=== PATIENT | male | born 1985 ===

== ENCOUNTER 2025-04-18 22:40 | Emergency (ER) | payer OTHER, SELFPAY ==
--- OUTSIDE RECORDS SUMMARY | 2016-10-28 19:00 | XMS_ITS | Continuity of Care Document ---
Author Organization [facility] Address [address] [address] [place] [address] Phone Care Team Providers Care Plumbing And Heating Contractor Name Role Phone Link Rell RALPH Unavailable Unavailable Procedures Procedure Date Colonoscopy Flex; Dx (jun Pro) 17 Moderate Sedation, Initial 15 minutes Ja Advance Directives Directive Yes / No Effective Date File Name No Information Encounters Encounter Description Practice Location Reason(s) For Visit Diagnoses Date Provider Providers Copied on Encounter [facility] [place], [address] [address], [place], [place], [id number], [place] tel:[phone] [facility] No Information Link MD Zacarias. [address] [place] [address], [address], [id number], [place]. tel:[phone] Referring Provider: Rell Ramachandran MD, [address] [place] [address], [id number]. tel:[phone] Family History Family Member Type Diagnosis Age At Onset No Information Payers Payer name Insurance type Covered democrat ID Domenic mejia(s) Blue Cross [facility] [id number] Social History Type Description Quantity Date Captured Comments Sex Male Smoking Status No Information Chief Complaint And Reason For Visit No Information Reason For Referral Reason For Referral No Information History Of Present Illness Encounter Date Complaint History Of Prese nt Illness No Information Functional Status Date Functional Assessmen t No Information Instructions Date Instruction Additional Infor mation No Information Assessments Type Assessment Date No Information Patient Care Teams Name Effective Dates (start - stop) Status Members No Information
--- OUTSIDE RECORDS SUMMARY | 2016-10-28 19:00 | XMS_ITS | Continuity of Care Document ---
Author Organization [facility] Address [address] [address] [place] [address] Phone Care Team Providers Care Alpine Patroller Name Role Phone Link Rell RALPH Unavailable Unavailable Procedures Procedure Date Colonoscopy Flex; Dx (jun Pro) 17 Moderate Sedation, Initial 15 minutes Ja Advance Directives Directive Yes / No Effective Date File Name No Information Encounters Encounter Description Practice Location Reason(s) For Visit Diagnoses Date Provider Providers Copied on Encounter [facility] [place], [address] [address], [place], [place], [id number], [place] tel:[phone] [facility] No Information Link MD Zacarias. [address] [place] [address], [address], [id number], [place]. tel:[phone] Referring Provider: Rell Ramachandran MD, [address] [place] [address], [id number]. tel:[phone] Family History Family Member Type Diagnosis Age At Onset No Information Payers Payer name Insurance type Covered constitution party ID Domenic mejia(s) Blue Cross [facility] [id number] Social History Type Description Quantity Date Captured [...]
--- OUTSIDE RECORDS SUMMARY | 2025-04-18 22:42 | XMS_ITS | Clinical Summary ---
Author Organization [facility] Address [address] [place] [address]. [place] [address] Care Team Providers Care Lathe Turner Name Role Phone No Ref-Primary, Physician Primary Care Provider Loyda Blevins MD Unavailable [phone] Allergies No known active allergies Medications propranolol (INDERAL LA) 60 MG 24 hr capsuleIndicatio ns:Episodic tension-type headache, not intractable,Anxi ety Take 1 capsule (60 mg) by mouth daily 30 capsule 1 7 Active cyclobenzaprine (FLEXERIL) 10 MG tabletIndication s:Episodic tension-type headache, not intractable Take 1 tablet (10 mg) by mouth 3 times daily as needed for muscle spasms 90 tablet 7 Active albuterol (PROAIR HFA/PROVENTIL HFA/VENTOLIN HFA) 108 (90 Base) MCG/ACT inhaler Inhale 1-2 puffs into the lungs. 4 Active predniSONE (DELTASONE) 20 MG tabletIndication s:Chronic cough,SOB (shortness of breath),Wheeze Take 3 tabs by mouth daily x 3 days, then 2 tabs daily x 3 days, then 1 tab daily x 3 days, then 1/2 tab daily x 3 days. 20 tablet 4 Active albuterol (PROAIR HFA) 108 (90 Base) MCG/ACT inhalerIndicatio ns:SOB (shortness of breath),Wheeze Inhale 2 puffs into the lungs every 6 hours. 18 g 4 Active amoxicillin-clav ulanate (AUGMENTIN) 875-125 MG tabletIndication s:Pneumonia due to infectious organism, unspecified laterality, unspecified part of lung Take 1 tablet by mouth 2 times daily. 20 tablet Active Additional Information Patient not taking.Reported on 09/06/2024 Active Problems Problem Noted Date Diagnosed Date Anxiety 12/23/2016 Esophageal reflux (GERD) 03/18/2014 Hyperlipidemia LDL goal <130 08/20/2010 Genital warts 07/08/2010 Immunizations Immunization Administration Dates Next Due TDAP Vaccine (Adacel) 07/08/2010 Family History Medical History Relation Comments Hypertension Father Cerebrovascular Disease Maternal Grandfather Diabetes Paternal Grandfather Diabetes Paternal Grandmother Colon Cancer No family hx of Relation Status Comments Father Alive Maternal Grandfather Maternal Grandmother Mother Alive Paternal Grandfather Alive Paternal Grandmother Social History Tobacco Use Types Packs/Day Years Used Date Smoking Tobacco: Never Cigars Smokeless Tobacco: Never Tobacco Cessation:Ready to Q uit: Yes Comments:occasionally Alcohol Use Standard Drinks/Week Comments Yes 0 (1 standard drink = 0.6 oz pur e alcohol) socailly PHQ-2 Answer Date Recorded PHQ-2 Score 0 09/06/2024 Interpersonal Safety Answer Date Record ed Do you feel physically and e motionally safe where you currently live? Yes 09/06/2024 Within the past 12 months, h ave you been hit, slapped, kicked or otherwise physically hurt by someone? No 09/06/2024 Within the past 12 months, h ave you been humiliated or emotionally abused in other ways by your partner or ex-partner? 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 Gender Identity Not on file Sexual Orientation Not on file Last Filed Vital Signs Vital Sign Reading Time Taken Comments Blood Pressure 143/88 09/06/2024 1:27 PM STATION MANAGER Pulse 92 09/06/2024 1:26 PM STATION MANAGER Temperature 37.4 C (99.3 F) 09/06/2024 1:26 PM STATION MANAGER Respiratory Rate 14 09/06/2024 1:26 PM STATION MANAGER Oxygen Saturation 98% 09/06/2024 1:26 PM STATION MANAGER Inhaled Oxygen Concentration - - Weight 77.9 kg (171 lb 12.8 oz) 09/06/2024 1:26 PM STATION MANAGER Height 170.2 cm (5' 7) 09/06/2024 1:26 PM STATION MANAGER Body Mass Index 26.91 09/06/2024 1:26 PM STATION MANAGER Plan of Treatment Health Maintenance Due Date Last Done Comments ADVANCE CARE PLANNING 1984 ANNUAL REVIEW OF HM ORDERS 1984 HEPATITIS C SCREENING 2002 HEPATITIS B VACCINE (1 of 3 - 19+ 3-dose series) 2003 YEARLY PREVENTIVE VISIT 01/28/2015 01/29/20 14, 07/10/2012, 09/16/2011, Additional history exists DTAP/TDAP/TD VACCINE (2 - Td or Tdap) 07/08/2020 07/08/2010 COVID-19 VACCINE ( - season) 2024 PHQ-2 (once per calendar year) 2024 09/06/2024, 12/23/2016, 10/21/2016 INFLUENZA VACCINE (#1) 2025 LIPID 09/06/2025 09/06/2024, 08/04, 01/28/2014, Additional history exists DIABETES SCREENING 09/06/2027 09/06/2024, 0 12/16/2016, 10/21/2016, Additional history exists ZOSTER VACCINE (1 of 2) 2034 HIV SCREENING Completed 08/26/2014 HPV VACCINE Aged Out No longer eligi ble based on patient's age to complete this topic MENINGITIS VACCINE Aged Out No longer eligible based on patient's age to complete this topic PNEUMOCOCCAL VACCINE: PEDIATRICS (0 to 5 YEARS) AND AT-RISK PATIENTS (6 to 49 YEARS) Aged Out No longer eligible based on patient's age to complete this topic Procedures Procedure Name Priority Date/Time Associated Diagnosis Comments COMPREHENSIVE METABOLIC PANEL Routine 09/06/2024 1:54 PM STATION MANAGER Pneumonia of right lung due to infectious organism, unspecified part of lung LIPID REFLEX TO DIRECT LDL PANEL Routine 09/06/2024 1:54 PM STATION MANAGER Lipid screening HIV ANTIGEN ANTIBODY COMBO Routine 08/26/2014 7:08 AM STATION MANAGER Screen for STD (sexually transmitted disease) from Last 3 Months or Most Recently Relevant to Health Maintenance Results * (ABNORMAL) Lipid panel reflex to direct LDL Non-fasting (09/06/2024 1:54 PM STATION MANAGER) Cholesterol 289(H) <200 mg/dL 09/07/2024 10:30 AM STATION MANAGER [facility] Triglycerides 315(H) <150 mg/dL 09/07/2024 10:30 AM STATION MANAGER [facility] Direct Measure HDL 46 >=40 mg/dL 09/07/2024 10:30 AM STATION MANAGER [facility] LDL Cholesterol Calculated 180(H) <100 mg/dL 09/07/2024 10:30 AM STATION MANAGER [facility] Non HDL Cholesterol 243(H) <130 mg/dL 09/07/2024 10:30 AM STATION MANAGER [facility] Patient Fasting > 8hrs? No 09/07/2024 10:30 AM STATION MANAGER [facility] Blood BLOOD SPECIMEN / Unknown Venipuncture / Unknown 09/06/2024 1:54 PM STATION MANAGER 09/06/2024 1:54 PM STATION MANAGER Narrative [facility] - 09/07/2024 10:30 AM STATION MANAGER Cholesterol Desirable: < 200 mg/dL Borderline High: 200 - 239 mg/dL High: >= 240 mg/dL Triglycerides Normal: < 150 mg/dL Borderline High: 150 - 199 mg/dL High: 200-499 mg/dL Very High: >= 500 mg/dL Direct Measure HDL Female: >= 50 mg/dL Male: >= 40 mg/dL LDL Cholesterol Desirable: < 100 mg/dL Above Desirable: 100 - 129 mg/dL Borderline High: 130 - 159 mg/dL High: 160 - 189 mg/dL Very High: >= 190 mg/dL Non HDL Cholesterol Desirable: < 130 mg/dL Above Desirable: 130 - 159 mg/dL Borderline High: 160 - 189 mg/dL High: 190 - 219 mg/dL Very High: >= 220 mg/dL us Loyda Blevins MD LAB - BLOOD ORDERABLES Final Re sult [facility] [address] [facility], [address] [place] [address], [facility] * Comprehensive metabolic panel (09/06/2024 1:54 PM STATION MANAGER) Sodium 136 135 - 145 mmol/L 09/07/2024 10:30 AM STATION MANAGER [facility] Potassium 4.0 3.4 - 5.3 mmol/L 09/07/2024 10:30 AM STATION MANAGER [facility] Carbon Dioxide (CO2) 28 22 - 29 mmol/L 09/07/2024 10:30 AM STATION MANAGER [facility] Anion Gap 9 7 - 15 mmol/L 09/07/2024 10:30 AM STATION MANAGER [facility] Urea Nitrogen 18.5 6.0 - 20.0 mg/dL 09/07/2024 10:30 AM STATION MANAGER [facility] Creatinine 1.03 0.67 - 1.17 mg/dL 09/07/2024 10:30 AM STATION MANAGER [facility] GFR Estimate >90 >60 mL/min/1.7 3m2 09/07/2024 10:30 AM STATION MANAGER [facility] Comment:eGFR calculated us2020 CKD-EPI equation. Calcium 9.0 8.8 - 10.4 mg/dL 09/07/2024 10:30 AM STATION MANAGER [facility] Comment:Reference intervals for this test were updated on 04/17/2024 to reflect our healthy population more accurately. There may be differences in the flagging of prior results with similar values performed with this method. Those prior results can be interpreted in the context of the updated reference intervals. Chloride 99 98 - 107 mmol/L 09/07/2024 10:30 AM STATION MANAGER [facility] Glucose 85 70 - 99 mg/dL 09/07/2024 10:30 AM STATION MANAGER [facility] Alkaline Phosphatase 75 40 - 150 U/L 09/07/2024 10:30 AM STATION MANAGER [facility] AST 25 0 - 45 U/L 09/07/2024 10:30 AM STATION MANAGER [facility] ALT 33 0 - 70 U/L 09/07/2024 10:30 AM STATION MANAGER [facility] Protein Total 7.7 6.4 - 8.3 g/dL 09/07/2024 10:30 AM STATION MANAGER [facility] Albumin 4.6 3.5 - 5.2 g/dL 09/07/2024 10:30 AM STATION MANAGER [facility] Bilirubin Total 0.2 <=1.2 mg/dL 09/07/2024 10:30 AM STATION MANAGER [facility] Patient Fasting > 8hrs? No 09/07/2024 10:30 AM STATION MANAGER [facility] Blood BLOOD SPECIMEN / Unknown Venipuncture / Unknown 09/06/2024 1:54 PM STATION MANAGER 09/06/2024 1:54 PM STATION MANAGER us Loyda Blevins MD LAB - BLOOD ORDERABLES Final Re sult [facility] [address] [facility] [address], [address] [place] [address], [place] * HIV Antigen Antibody Combo (08/26/2014 7:08 AM STATION MANAGER) Pathologist [facility] HIV Antigen Antibody Combo Nonreactive HIV-1 p24 Ag & HIV-1/HIV-2 Ab Not Detected NR [facility] Blood specimen (specimen) 08/26/2014 7:08 AM STATION MANAGER 08/26/2014 7:14 AM STATION MANAGER us Sarthak Urbina MD LAB - BLOOD ORDERABLES Final R esult [facility] [address] [place] [address] from Last 3 Months or Most Recently Relevant to Health Maintenance Insurance [facility] PPO [facility] PPO Care Teams Lathe Turner Relationship Specialty Start Date End Date No Ref-Primary, Physician PCP - General 09/06/24 [place] [address] [place] [address] Assigned PCP 09/24/24
--- OUTSIDE RECORDS SUMMARY | 2025-04-18 22:42 | XMS_ITS | Encounter Summary ---
Author Organization [facility] Address [address] [place] [address]. 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
--- OUTSIDE RECORDS SUMMARY | 2025-04-18 22:42 | XMS_ITS | Clinical Summary ---
[facility] Address [address] [place] [address] Care Team Providers Care Talkback Host Name Role Phone Found, No Pcp MD Primary Care Provider Unavailab le Source Comments You are receiving this document as you are listed as the primary care provider,follow-up provider, or the patient has been referred to you for consultation.This is in compliance with the Medicare and[facility] EHR Incentive Program,which states Providers who transition their patient to another setting of careor provider of care or refers their patient to another provider of care shouldprovide summary care record for each transition of care or referral. [employer] Allergies No known active allergies Medications omeprazole (PRILOSEC) 20 MG capsule Take 20 mg by mouth daily (every 24 hours). 10/16/19 15 Active cyclobenzaprine (FLEXERIL) 10 MG tablet Take 0.5-1 tablets by mouth 2 times daily as needed for Muscle spasms. 25 tablet 0 10/16/19 15 Active Additional Information Patient not taking.Reported on 06/15/2024 fluticasone propionate (FLONASE) 50 MCG/ACT nasal solutionIndicati ons:Bronchitis with bronchospasm Place 2 Sprays into both nostrils daily. 1 Each 06/15/20 24 Active ALBUterol sulfate HFA 108 (90 Base) MCG/ACT inhalerIndicatio ns:Bronchitis with bronchospasm Inhale 1-2 Puffs every 4 hours as needed for Wheezing. 1 Each 06/15/20 24 Active [facility] OMEPRAZOLE CPDR Take 20 mg by mouth daily (every 24 hours). 10/16/19 15 016 Discontin ued(Tevin eous Entry/Dup licate/Ot her) Active Problems No known active problems Social History Tobacco Use Types Packs/Day Years Used Date Smoking Tobacco: Some Days Cigars Tobacco Cessation:Ready to Q uit: Not Asked; Counseling Given: Not Answered Sex and Gender Information Value Date Recorded Sex Assigned at Not on file Legal Sex Male 7:01 PM CDT Gender Identity Not on file Sexual Orientation Not on file Last Filed Vital Signs Vital Sign Reading Time Taken Comments Blood Pressure 131/83 06/15/2024 5:59 PM CDT Pulse 97 06/15/2024 5:55 PM CDT Temperature 36.8 C (98.2 F) 06/15/2024 5:55 PM CDT Respiratory Rate 14 06/15/2024 5:55 PM CDT Oxygen Saturation 98% 06/15/2024 5:55 PM CDT Inhaled Oxygen Concentration - - Weight - - Height - - Body Mass Index - - Plan of Treatment Health Maintenance Due Date Last Done Comments Hep C Screening (Preventive Services) 1984 HIV Screening (Preventive Services) 2000 Adult Preventive Visit 2002 HepB Vaccine (1) 2003 Pneumococcal Vaccine (1 of 2 - PCV) 2003 Cholesterol 2019 DTaP/Tdap/Td Vaccine (2 - Tdap) 07/08/2020 0 COVID-19 Vaccine ( - 2023-2 5 season) 2024 Influenza Vaccine (#1) 2025 Zoster/Shingles Vaccine (1 of 2) 2034 HPV Vaccine Aged Out No longer eligi ble based on patient's age to complete this topic HepA Vaccine Aged Out No longer eligi ble based on patient's age to complete this topic Hib Vaccine Aged Out No longer eligi ble based on patient's age to complete this topic IPV (Polio) Vaccine Aged Out No longe r eligible based on patient's age to complete this topic MCV4 Vaccine Aged Out No longer eligi ble based on patient's age to complete this topic Meningococcal B Vaccine Aged Out No l onger eligible based on patient's age to complete this topic Care Teams Talkback Host Relationship Specialty Start Date End Date Found, No Pcp[facility] [address] [facility] [place] [address] PCP - General 03/17/21
[2025-04-18 22:46] VITALS: BP 145/76; PULSE 106; RESP 24; TEMP 36.2; O2SAT 100; BMI 27.4
[2025-04-18 22:57] VITALS: O2SAT 97
[2025-04-18 23:11] LABS: Hematocrit 42.2 % (37.0-53.0); Hemoglobin* 15.0 gm/dL (13.5-17.5); Immature Granulocytes Abs Auto 0.04 K/uL (0.00-0.30); Immature Granulocytes Pct Auto 0.6 %; Lymphocytes Absolute Auto 2.67 K/uL (0.90-2.90); Mean Corpuscular HGB Conc 36 gm/dL (32-36); Mean Corpuscular Hemoglobin 31 pg (26-34); Mean Corpuscular Volume 87 fL (80-100); RDW Coefficient of Variation % 10.9 % (11.5-15.5); Red Blood Count 4.83 m/uL (4.30-5.90); White Blood Count* 7.26 K/uL (4.50-11.00)
--- NOTE | 2025-04-18 23:14 | ED.GENADULT ---
HPI - General Adult General Date Seen: 04/18/25 Chief complaint: Chest Pain Stated complaint: Possible heart attack Time Seen by Provider: 04/18/25 23:14 History of Present Illness HPI narrative: 39 [facility] of chest pain, twitching in his chest, and left shoulder pain. He is generally healthy. No history of heart disease, asthma, DVT PE. He notes that throughout the day today, since he woke up at 7:30 a.m. this morning he has been having pain and feeling a clicking in his left posterior thorax, just medial to the scapula. He was present throughout the day at work. He did take 600 mg of ibuprofen this morning but it did not really help. The pain does not really radiate from there through to the front of his chest or down his arm or down into his low back. He was able to eat lunch and he had dinner tonight. After dinner he was playing soccer with his son he did not really have any chest pain then. At about 10:00 p.m. he was resting than noted that he started having some twitching in his left pectoral muscle and also a little bit of discomfort in his chest. After this he started to get a tingly feeling in both of his hands, so a feeling of lightheadedness and pain up his neck and also tingly weakness in his feet. He has not had any swelling is likely but his does recall that he had some fasciculations in in the calf muscle his left calf a couple of days ago. His was able to see his left pectoral muscle twitching tonight.. Per nurse triage... [facility] shortly prior to arrival after he played soccer with his children. Pain is in his chest and radiates to his left shoulder. He feels lightheaded. Both arms are tingly. He also has a headache. Related Data Home Medications ?Medication ?Instructions ?Recorded ?Confirmed No Known Home Medications 04/18/25 04/18/25 Allergies Allergy/AdvReac Type Severity Reaction Status Date / Time No Known Drug Allergies Allergy Verified 04/18/25 22:50 PFSH PFSH Social History Smoking Status: Never smoker Do you use any of these nicotine containing products: None Second hand tobacco smoke exposure: No How often do you have a drink containing alcohol: never How often do you have six or more drinks on one occasion: Never AUDIT-C Alcohol total score: 0 Non-prescribed substance use: denies use service: No Exam Narrative: Exam Narrative: Constitutional: Appears well-developed and well-nourished. Alert. Conversant. Non toxic. HENT: Head: Atraumatic. Nose: Nose normal. Mouth/Throat: Oral mucosa is clear and moist. no trismus. Pharynx normal. Tonsils symmetric. No tonsillar enlargement, erythema, or exudate. Eyes: Conjunctivae normal. EOM normal. Pupils equal, round, and reactive to light. No scleral icterus. Neck: Normal range of motion. Neck supple. No tracheal deviation present. No JVD Cardiovascular: Normal rate, regular rhythm. No gallop. No friction rub. No murmur heard. Symmetric radial and PT artery pulses Pulmonary/Chest: Effort normal. No stridor. No respiratory distress. No wheezes. No rales. No rhonchi . No tenderness. During our exam he does experience an episode of fasciculations affecting his left pectoralis muscle when we can visibly see fasciculations correlating with his symptoms of something twitching in his chest. During this episode he has sinus rhythm on the monitor without any arrhythmia or PVCs. Abdominal: Soft. Bowel sounds normal. No distension. No mass. No tenderness. No rebound. No guarding. Musculoskeletal: RUE: Normal range of motion. No tenderness. No deformity LUE: Normal range of motion. No tenderness. No deformity RLE: Normal range of motion. No edema. No tenderness. No deformity LLE: Normal range of motion. No edema. No tenderness. No deformity Neurological: Alert and oriented to person, place, and time. Normal strength. CN II-VII intact. No sensory deficit. GCS eye subscore is 4. GCS verbal subscore is 5. GCS motor subscore is 6. Normal coordination Skin: Skin is warm and dry. No rash noted. No pallor. Normal capillary refill. Psychiatric: Normal mood. Polite but anxious. Const: Vital Signs, click to edit/add: Vital Signs - 24 hr 04/18/25 22:46 04/18/25 22:57 Temperature 97.2 F L Pulse Rate [Pulse Oximeter] 106 H Respiratory Rate 24 Blood Pressure [Ri ght Upper Arm] 145/76 H Pulse Oximetry 100 97 Oxygen Delivery Me thod Room Air Course Vital Signs Vital signs: Initial Vital Signs Temperature 97.2 F L 04/18/25 22:46 Temperature Source Temporal Artery Scan 04/18/25 22:46 Pulse Rate 106 H 04/18/25 22:46 Respiratory Rate 24 04/18/25 22:46 Blood Pressure 145/76 H 04/18/25 22:46 Blood Pressure Mean 99 04/18/25 22:46 Blood Pressure Position Sitting 04/18/25 22:46 Pulse Oximetry 100 04/18/25 22:46 Oxygen Delivery Method Room Air 04/18/25 22:46 Vital Signs Temperature 97.2 F L 04/18/25 22:46 Pulse Rate 106 H 04/18/25 22:46 Respiratory Rate 24 04/18/25 22:46 Blood Pressure 145/76 H 04/18/25 22:46 Pulse Oximetry 100 04/18/25 22:46 Oxygen Delivery Method Room Air 04/18/25 22:46 Temperature 97.2 F L 04/18/25 22:46 Pulse Rate 106 H 04/18/25 22:46 Respiratory Rate 24 04/18/25 22:46 Blood Pressure 145/76 H 04/18/25 22:46 Pulse Oximetry 97 04/18/25 22:57 Oxygen Delivery Method Room Air 04/18/25 22:46 Medications Administered Medications: Discontinued Medications Generic Name Dose Route Start Last Admin Trade Name Freq PRN Reason Stop Dose Admin Aspirin 162 mg 04/18/25 23:31 04/18/25 23:45 Aspirin 81 Mg Tab.Chew PO 04/18/25 23:32 162 mg ONCE ONE Administration Sodium Chloride 1,000 mls @ 1,000 mls/hr 04/18/25 23:45 04/19/25 00:31 0.9 % Sodium Chloride 1000 Ml IV 04/19/25 00:44 Infused .Q1H BOO Infusion Medical Decision Making MDM Narrative Medical decision making narrative: This patient presents to the ER today for evaluation of several symptoms including pain involving his left posterior chest all day today, and some fasciculations affecting his left pectoral muscle this evening and chest pain that began this evening.. Differential was broad. No evidence of palpitations, syncope or other cardiac dysrhythmia. In terms of his twitching chest, I do not think this represents PVCs or SVT or AFib or other arrhythmia. He clearly correlates with visible pectoral muscle fasciculations during an episode here in the ER. Labs do show hypokalemia which is likely the cause of is fasciculation. Supplemented with oral medication. In terms of his chest discomfort, considered possible ACS, however workup with EKG and troponin is negative. HEART score is 1. Given time since onset of symptoms, I do not think the patient needs to be admitted for further sets of enzymes. EKG shows no evidence for pericarditis. Clinical presentation not suggestive of myocarditis. Chest x-ray shows no evidence for pneumonia, pneumothorax, pulmonary edema, pleural effusion, rib fracture, cardiomegaly. Mediastinum is normal on the x-ray. The patient has no ripping or tearing pain through to the back and has symmetric pulses on exam, no other acute neuro findings so I doubt aortic dissection. He does have some pain in his left posterior ribcage which seems to be reproducible palpation and likely musculoskeletal. Risk of radiation and IV contrast exposure would outweigh the benefit of CT angiogram. We considered PE for this patient. Screening D-dimer is normal. No wheezing or bronchospasm to suggest COPD/asthma. No signs of chest wall cellulitis, shingles, injury. He and his wonder if he might have a pinched nerve causing his posterior thorax to heard. We discussed that that is possible but cannot be fully evaluated here in the ER. If symptoms persist or worsen, he should return or see his doctor for further evaluation. Consider MRI to evaluate for nerve compression. With reasonable clinical confidence, I think the patient is safe for outpatient follow up. Discussed return precautions. Questions answered. Patient voices comfort with the plan. Lab Data Labs: Lab Results 04/18/25 04/18/25 Range/Units 23:00 23:16 WBC 7.26 (4.50-11.00) K/uL RBC 4.83 (4.30-5.90) m/uL Hgb 15.0 (13.5-17.5) gm/dL Hct 42.2 (37.0-53.0) % MCV 87 (80-100) fL MCH 31 (26-34) pg MCHC 36 (32-36) gm/dL RDW Coeff of Rukhsana 10.9 L (11.5-15.5) % Plt Count 258 (140-440) K/uL Neut % (Auto) 47.0 (42.0-72.0) % Lymph % (Auto) 36.8 (20-44) % [place] % (Auto) 6.9 (0.0-11.0) % Eos % (Auto) 7.6 H (0.0-7.0) % Baso % (Auto) 1.1 (0.0-3.0) % Neut # (Auto) 3.42 (1.7-7.0) K/uL Lymph # (Auto) 2.67 (0.90-2.90) K/uL [place] # (Auto) 0.50 (0.00-0.90) K/UL Eos # (Auto) 0.60 H (0.00-0.50) K/uL Baso # (Auto) 0.08 (0.00-0.30) K/uL Abs Immat Gran (auto) 0.04 (0.00-0.30) K/uL Imm/Tot Granulo (auto) 0.6 % D-Dimer Quant (PE/DVT) 0.15 (0.00-0.50) ug/ml Sodium 138 (135-149) mmol/L Potassium 3.2 L (3.6-5.1) mmol/L Chloride 104 (96-114) mmol/L Carbon Dioxide 22 (20-32) mmol/L Anion Gap 12 (7-15) mEq/L BUN 12 (5-24) mg/dL Creatinine 1.1 (0.5-1.5) mg/dL Estimated Creat Clear 83.46 Estimated GFR 87 ml/min Glucose 131 H (60-115) mg/dL Calcium 9.5 (8.4-10.6) mg/dL Lipase 95 (23-300) U/L POC Troponin I 0.00 L (0.01-0.04) ng/ml Imaging Data Chest x-ray: Attestation: I have reviewed the pertinent imaging results. Radiologist's impression: IMPRESSION: No evidence of an acute pulmonary process. ECG Data Attestation: I personally reviewed and interpreted this ECG as follows: Interpretation: Normal sinus rhythm Rate 96 UT interval 136 Normal QRS axis. No pathologic Q-waves. No ST segment elevation or depression. QTC 447 Discharge Plan Discharge Clinical Impression: Chest pain, Fasciculations of muscle, Acute hypokalemia Patient Disposition: Home, Self-Care Condition: Stable Instructions: Chest Pain (DC), Hypokalemia (ED) Additional Instructions: Please return to the ER right away if you have any worsening chest pain, back pain, trouble breathing, or any concerns. Please recheck with your regular doctor within 5-7 days. Your potassium is a little bit low tonight and I think this is causing the twitching in your muscles. We have given you a potassium supplement here. Try to eat potassium rich foods such as bananas, tomato juice, potato skins, avocados for the next couple of days to bring her potassium level up. Please recheck with your doctor to have your potassium level rechecked. Prescriptions: No Action No Known Home Medications Follow Up/Referrals: Provider,Not a Local [Primary Care Provider, Family Practice] Stand Alone Forms: [facility] Info Instructions
[2025-04-18 23:17] LABS: Troponin, Point-of-Care* 0.00 ng/ml (0.01-0.04)
[2025-04-18 23:21] LABS: Slide Review Reflex No
[2025-04-18 23:26] LABS: Chloride* 104 mmol/L (96-114); Sodium* 138 mmol/L (135-149)
[2025-04-18 23:27] LABS: Potassium* 3.2 mmol/L (3.6-5.1)
[2025-04-18 23:29] LABS: Blood Urea Nitrogen* 12 mg/dL (5-24); Creatinine* 1.1 mg/dL (0.5-1.5); Est. Creatinine Clearance* 83.46; Estimated Glomerular Filt Rate 87 ml/min
[2025-04-18 23:30] LABS: Calcium* 9.5 mg/dL (8.4-10.6); Carbon Dioxide* 22 mmol/L (20-32); Glucose* 131 mg/dL (60-115)
[2025-04-18 23:40] LABS: D Dimer Quantitative* 0.15 ug/ml (0.00-0.50)
[2025-04-18 23:41] LABS: Anion Gap 12 mEq/L (7-15)
[2025-04-18] MEDS: ASPIRIN 81 MG TAB.CHEW 162 MG PO (23:45)
[2025-04-19 00:55] VITALS: BP 135/70; PULSE 86; RESP 24; TEMP 36.9; O2SAT 97
--- NOTE | 2025-04-19 01:20 | CRLHL7_ITS ---
For Patients: As a result of the Century Cures Act, medical imaging exams and procedure reports are released immediately into your electronic medical record. You may view this report before your referring provider. If you have questions, please contact your health care provider. INDICATION: Chest pain and left shoulder pain. TECHNIQUE: Chest 2 views. COMPARISON: None. FINDINGS: Cardiovascular and mediastinum: Heart size and vasculature are normal in caliber and appearance. Lungs and pleural spaces: No focal consolidation, pleural effusion, or pneumothorax. Bones and soft tissues: Unremarkable for age. IMPRESSION: No evidence of an acute pulmonary process. Dictated by Donnie Hensley MD @ 04/19/2025 1:35:44 AM (Electronically Signed)
[2025-04-19 02:06] VITALS: BP 132/70; PULSE 89; RESP 24; TEMP 36.9; O2SAT 97
[2025-04-19] MEDS: POTASSIUM BICARB 25 MEQ EFFERVESCENT TAB 50 MEQ PO (02:08)
[2025-04-19 02:59] VITALS: BP 132/70; PULSE 89; RESP 24; TEMP 36.9
== END 2025-04-19 02:59 | disposition home or self-care (01) ==
PROVIDERS: Emergency Provider Emergency Medicine
DX: R07.9 Chest pain, unspecified (principal); R25.3 Fasciculation; E87.6 Hypokalemia
CPT/HCPCS: 36415; 71046; 80048; 83690; 84484; 85025; 85379; 93005; 94761; 99283; 99284; 99285; A9270; J7030